=== PATIENT | female | born 1975 | race Caucasian/White ===

== ENCOUNTER 2021-01-31 04:10 | Day surgery (SDC) | payer OTHER ==
[2021-01-26 14:04] VITALS: BMI 45.0
[2021-01-31] MEDS ORDERED: ONDANSETRON 4 MG/2 ML VIAL IVPUSH PRN (07:49)
[2021-01-31] MEDS ORDERED: LACTATED RINGERS SOLUTION 1,000 ML IV SCH (08:00)
[2021-01-31] MEDS ORDERED: LIDOCAINE HCL 2% (20ML MULTI-DOSE VIAL) ONE (08:34)
[2021-01-31] MEDS ORDERED: BUPIVACAINE HCL/PF 0.25% (2.5MG/ML) 10 ML VIAL ONE (08:34)
[2021-01-31] MEDS ORDERED: BUPIVACAINE LIPOSOME/PF (EXPAREL) 266 MG/20 ML VIAL ONE (08:34)
[2021-01-31] MEDS ORDERED: MIDAZOLAM HCL 2 MG/2 ML SINGLE DOSE VIAL ONE ×2 (08:50)
[2021-01-31] MEDS ORDERED: fentaNYL CITRATE 250 MCG/5 ML VIAL ONE (09:21)
[2021-01-31] MEDS ORDERED: HYDROmorphone HCl 2 MG/ML VIAL ONE (09:21)
[2021-01-31] MEDS ORDERED: ceFAZolin SODIUM 1 GM VIAL IVPB ONE (09:30)
[2021-01-31] MEDS ORDERED: ROCURONIUM BROMIDE 50 MG/5 ML SYRINGE ONE (10:33)
[2021-01-31] MEDS ORDERED: KETOROLAC TROMETHAMINE 30 MG/1 ML VIAL ONE (10:42)
[2021-01-31] MEDS ORDERED: GLYCOPYRROLATE 0.2 MG/1 ML VIAL ONE (10:44)
[2021-01-31] MEDS ORDERED: NEOSTIGMINE METHYLSULFATE 0.5 MG/1 ML - 10 ML MDV ONE (10:44)
[2021-01-31] MEDS ORDERED: PROPOFOL 20 ML ONE (10:55)
[2021-01-31] MEDS ORDERED: ACETAMINOPHEN 1000 MG/100 ML VIAL (NON FORMULARY) IVPB PRN (11:23)
[2021-01-31] MEDS ORDERED: ONDANSETRON 4 MG/2 ML VIAL ONE (11:51)
[2021-01-31] MEDS ORDERED: PROMETHAZINE HCL 25 MG/1 ML VIAL ONE (12:45)
[2021-01-31] MEDS ORDERED: PROMETHAZINE HCL 25 MG/1 ML VIAL IVPUSH PRN (12:55)
[2021-01-31 15:38] VITALS: BP 121/71; PULSE 98; TEMP 97.7
== END 2021-01-31 15:45 | disposition home or self-care (01) ==
LOC: JASU-SURG 04:10
PROVIDERS: ATTEND Obstetrics & Gynecology Gynecologic Oncology
PROC: 0UT54ZZ Resection of Right Fallopian Tube, Percutaneous Endoscopic Approach (ICD-10-PCS; 2021-01-31)
PROC: 0UT04ZZ Resection of Right Ovary, Percutaneous Endoscopic Approach (ICD-10-PCS; principal; 2021-01-31 09:00)
DX: D39.11 Neoplasm of uncertain behavior of right ovary (principal); N80.1 Endometriosis of ovary; R97.1 Elevated cancer antigen 125 [CA 125]; E11.9 Type 2 diabetes mellitus without complications; E66.01 Morbid (severe) obesity due to excess calories; I10 Essential (primary) hypertension; G47.30 Sleep apnea, unspecified
CPT/HCPCS: 36415; 84703; 86850; 86900; 86901; 88307-TC; 88331-TC; 94760; J0131